=== PATIENT | male | born 1935 | race Caucasian/White ===

== ENCOUNTER 2017-07-09 12:57 | Observation (INO) | payer OTHER, BC ==
[~2017-07-09] VITALS: Ht 177.8 cm; Wt 131.5 kg
[~2017-07-09 12:57] MED LIST: ASPI-435 PO; CMD25 PO; DICL-201 PO; DUTA0.5C PO; GLC500 PO; GLIP-199 PO; HYDR-3419 PO; LANS30TA3 PO; LISI-461 PO; LPR25 PO; SAXA1TAB PO
[2017-07-09 14:28] LABS: BASO % 0.5 %; BASO ABS # 0.05 K/uL (0-0.2); COMPLETE YES; EOS % 6.8 %; IG% 0.3 %; LYMPH % 24.1 %; LYMPH ABS # 2.29 K/uL (1.2-3.4); MEAN CELL VOLUME 89.7 fL (80-100); MEAN CORPUSCULAR HEMOGLOBIN 30.8 pg (25-34); MEAN CORPUSCULAR HGB CONC 34.4 g/dl (32-36); MONO % 7.6 %; NEUT % 60.7 %; PLATELET COUNT 223 K/uL (130-400); RED BLOOD COUNT 4.35 M/uL (4.7-6.1)
[2017-07-09 14:37] LABS: ALT/SGPT 17 U/L (12-78); AST/SGOT 14 U/L (15-37); BLOOD UREA NITROGEN 13 mg/dl (7-18); CALCIUM 8.7 mg/dl (8.5-10.1); CARBON DIOXIDE 23 mmol/L (21-32); CHLORIDE 107 mmol/L (98-107); CREATININE 0.91 mg/dl (0.60-1.40); GLUCOSE 63 mg/dl (70-99); POTASSIUM 3.9 mmol/L (3.5-5.1); SODIUM 137 mmol/L (136-145)
[2017-07-09 14:47] LABS: ALKALINE PHOSPHATASE 83 U/L (45-117)
--- NOTE | 2017-07-09 15:01 | DIAGNOSTIC IMAGING REPORT ---
ABDOMEN 2VIEW W/PA CHEST RTN HISTORY: 81 years-old Male ABDOMINAL PAIN/GI acute upper abdominal pain for a few days. Initial study. COMPARISON: Chest radiograph 03/21/2014 TECHNIQUE: Frontal view of the chest with erect and supine views of the abdomen FINDINGS: Cardiac silhouette is moderately enlarged, unchanged. Left pectoral pacer is noted with leads intact. No pneumothorax, pleural effusion or focal airspace consolidation. No overt pulmonary edema. There is no pneumoperitoneum on the upright projection. The bowel gas pattern is nonobstructive. No urolith identified. Moderate stool burden. Advanced multilevel degenerative changes of the spine are seen. Moderate degenerative changes of the bilateral hips. IMPRESSION: 1. Cardiomegaly without acute cardiopulmonary process. 2. Moderate stool burden with nonobstructive bowel gas pattern. 3. No urolithiasis identified. The above report was generated using voice recognition software. It may contain grammatical, syntax or spelling errors. Electronically signed by: Coleman Parsons M.D. 07/09/2017 2:59 PM Dictated Date/Time: 07/09/2017 2:57 PM
[2017-07-09 15:25] LABS: INR 1.9 (0.9-1.1); PARTIAL THROMBOPLASTIN RATIO 1.3; PROTHROMBIN TIME (PATIENT) 21.4 SECONDS (9.0-12.0)
[2017-07-09 15:34] LABS: MAGNESIUM 1.9 mg/dl (1.8-2.4); PHOSPHORUS 2.3 mg/dl (2.5-4.9)
[2017-07-09] MEDS ORDERED: METF1000 PO (15:39)
[2017-07-09] MEDS ORDERED: TAMS0.4C38 PO (15:39)
[2017-07-09] MEDS ORDERED: ROSU5TAB PO (15:39)
[2017-07-09] MEDS ORDERED: METO25TA56 PO (15:39)
[2017-07-09] MEDS ORDERED: SPIR25TA89 PO (15:39)
[2017-07-09] MEDS ORDERED: FURO-85 PO (15:39)
[2017-07-09] MEDS ORDERED: WARF5TAB7 PO (15:39)
[2017-07-09] MEDS ORDERED: CMD/25 PO (15:39)
--- NOTE | 2017-07-09 15:54 | EMERGENCY ROOM VISIT NOTE ---
ED Visit Note First contact with patient: 13:32 The patient was seen and examined with Martinez Rod PA-C. I agree with the history, physical and findings. Please see the note for disposition and details.
[2017-07-09 16:27] LABS: URINE APPEARANCE CLEAR (CLEAR); URINE BILIRUBIN NEG (NEG); URINE COLOR YELLOW; URINE NITRITE NEG (NEG); URINE SPECIFIC GRAVITY 1.021 (1.000-1.030); UROBILINOGEN NEG (NEG)
[2017-07-09 16:28] LABS: MANUAL MICROSCOPIC REQUIRED? NO; REVIEW REQ? NO
[2017-07-09] MEDS ORDERED: DEXTROSE 50% 50 ML SYR IV PRN (17:00)
[2017-07-09] MEDS ORDERED: GLUCAGON FOR INJ 1 MG VIAL SQ PRN (17:00)
[2017-07-09] MEDS ORDERED: GLUCOSE 10 TABS/TUBE PO PRN (17:00)
[2017-07-09] MEDS ORDERED: GLUCOSE 40% GEL 15 GM TUBE PO PRN (17:00)
--- NOTE | 2017-07-09 17:06 | DIAGNOSTIC IMAGING REPORT ---
ABDOMINAL ULTRASOUND, RIGHT UPPER QUADRANT HISTORY: Epigastric pain. COMPARISON: None. FINDINGS: Pancreas: Obscured by overlying bowel gas. Liver: The liver is echogenic consistent with fatty change. The liver measures 18.7 cm in length. Gallbladder: Echogenic material which almost completely fills the gallbladder. This likely represents shadowing stones. No gallbladder wall thickening. No pericholecystic fluid. The technologist reported a negative sonographic Christian's sign. CBD: 4 mm. Right kidney: No hydronephrosis. IMPRESSION: 1. Cholelithiasis which almost completely fills the gallbladder. No definite gallbladder wall thickening. 2. Borderline hepatomegaly demonstrating fatty change. 3. The pancreas was obscured by overlying bowel gas. Electronically signed by: Say Watt M.D. 07/09/2017 5:04 PM Dictated Date/Time: 07/09/2017 5:02 PM
[2017-07-09] MEDS ORDERED: IV FLUIDS COMPLETED PRN (17:15)
[2017-07-09] MEDS ORDERED: CMD75 PO (17:28)
[2017-07-09] MEDS ORDERED: WARFARIN SOD 7.5 MG TAB PO SCH (17:30)
[2017-07-09] MEDS ORDERED: WARFARIN SOD 5 MG TAB PO SCH (17:30)
[2017-07-09] MEDS ORDERED: NITROGLYCERIN 0.4 MG SL PER TAB CHARGE SL PRN (17:45)
[2017-07-09] MEDS ORDERED: ENOXAPARIN 40 MG/0.4 ML SYR SC SCH (17:45)
[2017-07-09] MEDS ORDERED: ACETAMINOPHEN 325 MG TAB PO PRN (17:45)
[2017-07-09] MEDS ORDERED: ONDANSETRON INJ 2 MG/ML 2 ML VIAL IV PRN (17:45)
--- NOTE | 2017-07-09 17:57 | History and Physical ---
History & Physical Date & Time of Service: Jul 09, 2017 at 17:54 Chief Complaint: Chest And Upper Stomach Pain Primary Care Physician: Jordon Cortez M.D. 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 Patient is unsure about the onset of pain. Describes pain beneath lower sternum and in mid- epigastrium that is sharp, intermittent, non-radiating, and worse with exertion. Patient is a poor historian but family and daughter mentioned that patient was doubled over in pain this morning. Endorses SOB, but states that he has had this for years and is SOB after walking 20 feet. Per family, patient is becoming SOB after climbing a few steps in his home, which is different than baseline. Endorses orthopnea but states that it has improved since starting to use a CPAP machine at night earlier this month. Denies any change to edema in LE. Denies ever being diagnosed with CHF. Daughter states that patient's abdomen looks larger than usual but patient denies weight gain. Has a large abdominal wall hernia that has been present for years. Patient is unsure if it contributes to SOB. Denies any fever, chills, nausea, acid-reflux, vomiting, diarrhea or changes to stool. Patient follows with Dr. Leyva in clinic for A fib and HTN. Was recently seen and patient was restarted on Lasix 3x/wk after running out. PM was interrogated on 01/15 and is functioning normally. Stress echo was performed in 2014 and was negative for inducible ischemia. LV EF of 55-59%. Family History FH: cancer FH: diabetes mellitus Social History Smoking Status: Never Smoker Marital Status: Housing status: lives with family Allergies Coded Allergies: No Known Allergies (Unverified , 07/09/17) Home Medications Scheduled Aspirin (Aspirin 81), 81 MG PO DAILY Dutasteride (Avodart), 0.5 MG PO DAILY Furosemide (Lasix), 20 MG PO 3XWK Glipizide (Glipizide Er), 2 TAB PO DAILY Lansoprazole (Prevacid Solutab), 30 MG PO DAILY Metformin Hcl (Glucophage), 1,000 MG PO DAILY Metoprolol Tartrate (Lopressor) (Lopressor), 25 MG PO BID Rosuvastatin Calcium (Crestor), 10 MG PO MON&THUR Saxagliptin-Metformin Hcl (Kombiglyze Xr), 1 TAB PO DAILY Spironolactone (Aldactone), 25 MG PO UD Tamsulosin Hcl (Flomax), 0.4 MG PO DAILY Warfarin Sod (Jantoven), 5 MG PO MON&FRI Warfarin Sod (Coumadin), 1 TAB PO DIRECTED Review of Systems Ten systems reviewed and negative except as noted in the HPI. Physical Exam Vital Signs Date Time Temp Pulse Resp B/P (MAP) Pulse Ox O2 Delivery O2 Flow Rate FiO2 07/09/17 17:51 36.5 60 16 141/75 97 07/09/17 16:07 60 16 07/09/17 16:02 148/88 07/09/17 15:37 60 18 94 07/09/17 15:32 136/66 07/09/17 15:07 60 19 95 07/09/17 15:02 134/68 07/09/17 14:57 60 19 97 07/09/17 14:54 143/70 07/09/17 14:27 60 16 94 07/09/17 14:02 134/71 07/09/17 13:57 60 14 94 07/09/17 13:38 96 Room Air 07/09/17 13:32 139/85 07/09/17 13:30 60 07/09/17 13:07 36.5 82 20 146/85 96 Room Air General Appearance: WD/WN, no apparent distress, + obese Head: normocephalic, atraumatic Eyes: normal inspection, PERRL, sclerae normal ENT: normal ENT inspection Neck: supple, no adenopathy Respiratory/Chest: chest non-tender, lungs clear, normal breath sounds, no respiratory distress, no accessory muscle use Cardiovascular: regular rate, rhythm, no murmur, normal peripheral pulses Abdomen/GI: normal bowel sounds, non tender, soft (Protuberant abdomen with large abdominal wall hernia in the midline. Slight TTP in mid-epigastrium. No tenderness elsewhere. ), no organomegaly Back: normal inspection Extremities/Musculoskelatal: normal inspection, no calf tenderness, normal capillary refill, + swelling (Trace swelling in LE ) Neurologic/Psych: no motor/sensory deficits, alert, normal mood/affect, oriented x 3 Skin: normal color, warm/dry Diagnostics Laboratory Results Results Past 24 Hours Test 07/09/17 13:25 07/09/17 13:41 07/09/17 14:55 07/09/17 16:00 Range/Units White Blood Count 9.50 4.8-10.8 K/uL Red Blood Count 4.35 4.7-6.1 M/uL Hemoglobin 13.4 14.0-18.0 g/dL Hematocrit 39.0 42-52 % Mean Corpuscular Volume 89.7 80-100 fL Mean Corpuscular Hemoglobin 30.8 25-34 pg Mean Corpuscular Hemoglobin Concent 34.4 32-36 g/dl Platelet Count 223 130-400 K/uL Mean Platelet Volume 10.0 7.4-10.4 fL Neutrophils (%) (Auto) 60.7 % Lymphocytes (%) (Auto) 24.1 % Monocytes (%) (Auto) 7.6 % Eosinophils (%) (Auto) 6.8 % Basophils (%) (Auto) 0.5 % Neutrophils # (Auto) 5.76 1.4-6.5 K/uL Lymphocytes # (Auto) 2.29 1.2-3.4 K/uL Monocytes # (Auto) 0.72 0.11-0.59 K/uL Eosinophils # (Auto) 0.65 0-0.5 K/uL Basophils # (Auto) 0.05 0-0.2 K/uL RDW Standard Deviation 46.4 36.4-46.3 fL RDW Coefficient of Variation 14.1 11.5-14.5 % Immature Granulocyte % (Auto) 0.3 % Immature Granulocyte # (Auto) 0.03 0.00-0.02 K/uL Sodium Level 137 136-145 mmol/L Potassium Level 3.9 3.5-5.1 mmol/L Chloride Level 107 98-107 mmol/L Carbon Dioxide Level 23 21-32 mmol/L Anion Gap 7.0 3-11 mmol/L Blood Urea Nitrogen 13 7-18 mg/dl Creatinine 0.91 0.60-1.40 mg/dl Est Creatinine Clear Calc Drug Dose 89.0 ml/min Estimated GFR () 92.6 Estimated GFR (Non- 79.9 BUN/Creatinine Ratio 14.0 10-20 Random Glucose 63 70-99 mg/dl Calcium Level 8.7 8.5-10.1 mg/dl Phosphorus Level 2.3 2.5-4.9 mg/dl Magnesium Level 1.9 1.8-2.4 mg/dl Total Bilirubin 1.0 0.2-1 mg/dl Direct Bilirubin 0.2 0-0.2 mg/dl Aspartate Amino Transf (AST/SGOT) 14 15-37 U/L Alanine Aminotransferase (ALT/SGPT) 17 12-78 U/L Alkaline Phosphatase 83 45-117 U/L Total Creatine Kinase 81 39-308 U/L Troponin I < 0.015 0-0.045 ng/ml Pro-B-Type Natriuretic Peptide 2800 0-1800 pg/ml Total Protein 7.0 6.4-8.2 gm/dl Albumin 3.5 3.4-5.0 gm/dl Lipase 75 73-393 U/L Thyroid Stimulating Hormone (TSH) 2.690 0.300-4.500 uIu/ml Bedside Troponin I < 0.030 0-0.045 ng/ml Prothrombin Time 21.4 9.0-12.0 SECONDS Prothromb Time International Ratio 1.9 0.9-1.1 Activated Partial Thromboplast Time 32.9 21.0-31.0 SECONDS Partial Thromboplastin Ratio 1.3 D-Dimer 280 0-500 ug/L FEU Urine Color YELLOW Urine Appearance CLEAR CLEAR Urine pH 5.0 4.5-7.5 Urine Specific [place] 1.021 1.000-1.030 Urine Protein NEG NEG Urine Glucose (UA) NEG NEG Urine Ketones NEG NEG Urine Occult Blood NEG NEG Urine Nitrite NEG NEG Urine Bilirubin NEG NEG Urine Urobilinogen NEG NEG Urine Leukocyte Esterase NEG NEG Diagnostic Radiology CXR: IMPRESSION: 1. Cardiomegaly without acute cardiopulmonary process. 2. Moderate stool burden with nonobstructive bowel gas pattern. 3. No urolithiasis identified. RUQ ultrasound: 1. Cholelithiasis which almost completely fills the gallbladder. No definite gallbladder wall thickening. 2. Borderline hepatomegaly demonstrating fatty change. 3. The pancreas was obscured by overlying bowel gas. 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 Lower central chest pain/epigastric pain: -R/o ACS; risk factors include HTN, DM II, obesity, HLD -Initial troponin negative, EKG-no ischemia, d-dimer: negative -CXR- Cardiomegaly without acute cardiopulmonary process -Stress echo from 2015 without inducible ischemia. EF of 55-59% -Trend serial cardiac enzymes -Repeat EKG in AM -Fasting lipid panel in AM -Cont aspirin, statin -Consult cardiology DM II: -Unable to find recent hgb a1c in chart review -Ordered hgb a1c -Held oral agents -SSI while in-patient -BG checks AC HS -Diabetic diet Cholelithiasis: -Observed on RUQ U/S. No GB wall thickening -Afebrile, no leukocytosis or RUQ pain to indicate cholecystitis -Encourage low fat diet, continuation of statin -Monitor HTN: -Stable -Continue home dose of lasix, spironolactone, metoprolol A fib: -H/o tachy-leanne syndrome with PM placed in 2013 -Rate controlled -INR subtherapeutic at 1.9 -Increased warfarin to 7.5mg daily while in-patient -Monitor INR Elevated BNP: -BNP of 2800 with SOB -Not diagnosis of CHF on file, however is on diuretics -Lungs are clear, legs with minimal swelling -Repeat echo HLD: -Continue statin -Fasting lipid panel in AM HERMES: -Recently diagnosed -Ordered CPAP for qHS use GERD: -Continue home meds DVT Ppx: on warfarin Code status: FULL PCP: Diego Dispo: Plan to return home once medically stable ADDENDUM: This is a 81 year old male with a PMH of A. Fib and tachy-leanne syndrome s/p PPM , DM2, HTN, HLD, morbid obesity, HERMES on CPAP - presents with epigastric, lower chest pain for around two weeks. Pain seems more related to a hernia more than cardiac, but with so many risk factors, must rule out ACS. Plan is to monitor in tele, check echo, trend enzymes, recheck EKG in AM. Consult cardiology for further input. Currently on Prevacid once daily, may need to increase this or add Zantac Level of Care Telemetry Resuscitation Status FULL RESUSCITATION VTE Prophylaxis VTE Risk Assessment Done? Y/N: Yes Risk Level: High Given or contraindicated: Warfarin (Coumadin)
[2017-07-09 18:22] VITALS: BP 149/85; PULSE 68; TEMP 36.2; O2SAT 97; Ht 177.8 cm; Wt 131.5 kg
[2017-07-09] MEDS ORDERED: FUROSEMIDE 20 MG TAB PO SCH (19:00)
[2017-07-09] MEDS ORDERED: ENALAPRILAT IV 1.25 MG in DEXTROSE 5% 25ML 25 ML IV ONE (19:30)
[2017-07-09] MEDS: POT PHOSPHATE MONOBASIC W/ SOD TAB PO SCH (20:10)
[2017-07-09] MEDS: SPIRONOLACTONE 25 MG TAB PO SCH (20:10)
[2017-07-09] MEDS: METOPROLOL TARTRATE 25 MG TAB PO SCH (20:10)
[2017-07-09 20:18] LABS: CKMB/CK RATIO 1.8 (0-3.0)
[2017-07-09] MEDS: INSULIN ASPART 100 UNITS/ML 3 ML PEN SC SCH (20:19)
[2017-07-09] MEDS: AVODART~ORDER AWAITING ACTION SCH (23:04)
--- NOTE | 2017-07-09 23:18 | EMERGENCY ROOM VISIT NOTE ---
History First contact with patient: 13:32 Chief Complaint: CHEST PAIN Stated Complaint: CHEST AND UPPER STOMACH PAIN History of Present Illness The patient is a 81 year old male, history of atrial fibrillation with tachybradycardia syndrome status post [employer] pacemaker insertion in 2013, who presents to the Emergency Room with complaints of lower central chest pain, upper abdominal pain and fullness. The patient is a poor historian, and his and daughter are both present, helping with the patient's history. The patient reports that his symptoms have been ongoing for the past week. He reports that the pain is intermittent in nature. It does not radiate into the back, upper chest or lower abdomen. He has not noticed any change in stools or urine patterns. The patient reports that he has been short of breath over the past month, but reports that this is not new. He has not noticed any edema of the lower extremities. According to the daughter, she reports that his abdomen looks bigger than it usually is. He has a history of abdominal wall hernia that has not been addressed by his PCP or his surgeon, but has had it for years. The patient has not noticed any nausea or vomiting. The is also concerned because he sleeps all the time and appears to be more fatigued than usual. The patient denies any recent changes in his blood glucose levels with history of diabetes. He has not had any recent fevers or chills, cough, sore throat or sinus congestion. At the current time, he rates his abdominal pain a 2 out of 10. His family reported that he was doubled over in pain this morning. Review of Systems HEENT: Denies dizziness, atypical visual problems, hearing loss, tinnitus. Denies difficulty swallowing or oral lesions. PULMONARY: Denies cough, sputum production or hemoptysis. He currently denies any shortness of breath. CARDIOVASCULAR: Denies any recent palpitations, dyspnea on exertion, orthopnea or peripheral edema. GASTROINTESTINAL: Denies diarrhea, constipation, nausea or vomiting. Otherwise see history of present illness. GENITOURINARY: Denies dysuria, frequency, urgency or nocturia. NEUROLOGIC: Denies history of epilepsy, CVA, TIA or chronic headaches. MUSCULOSKELETAL: Denies history of joint tenderness/swelling. SKIN: Denies rashes or lesions. PSYCHIATRIC: Denies history of depression or mental illness. ENDOCRINE: History of diabetes. Denies thyroid disorders. Past Medical/Surgical History Medical Problems: (1) Atrial Fibrillation (2) Chest pain (3) Diab Aan Wo Compl, Type Ii Or Unspec Type, Not Uncntrld (4) Epigastric abdominal pain (5) Esophageal Reflux (6) History of cardiac pacemaker (7) Hyperlipidemia Nec/Nos (8) Hypertension Nos (9) Morbid Obesity Family History FH: cancer FH: diabetes mellitus Social History Smoking Status: Never Smoker Smokeless Tobacco Use: No Alcohol Use: none Drug Use: none Marital Status: Occupation Status: retired Current/Historical Medications Scheduled Aspirin (Aspirin 81), 81 MG PO DAILY Dutasteride (Avodart), 0.5 MG PO DAILY Furosemide (Lasix), 20 MG PO 3XWK Glipizide (Glipizide Er), 2 TAB PO DAILY Lansoprazole (Prevacid Solutab), 30 MG PO DAILY Metformin Hcl (Glucophage), 1,000 MG PO DAILY Metoprolol Tartrate (Lopressor) (Lopressor), 25 MG PO BID Rosuvastatin Calcium (Crestor), 10 MG PO MON&THUR Saxagliptin-Metformin Hcl (Kombiglyze Xr), 1 TAB PO DAILY Spironolactone (Aldactone), 25 MG PO UD Tamsulosin Hcl (Flomax), 0.4 MG PO DAILY Warfarin Sod (Jantoven), 5 MG PO MON&FRI Warfarin Sod (Coumadin), 1 TAB PO DIRECTED Physical Exam Vital Signs Date Time Temp Pulse Resp B/P (MAP) Pulse Ox O2 Delivery O2 Flow Rate FiO2 07/09/17 16:07 60 16 07/09/17 16:02 148/88 07/09/17 15:37 60 18 94 07/09/17 15:32 136/66 07/09/17 15:07 60 19 95 07/09/17 15:02 134/68 07/09/17 14:57 60 19 97 07/09/17 14:54 143/70 07/09/17 14:27 60 16 94 07/09/17 14:02 134/71 07/09/17 13:57 60 14 94 07/09/17 13:38 96 Room Air 07/09/17 13:32 139/85 07/09/17 13:30 60 07/09/17 13:07 36.5 82 20 146/85 96 Room Air Physical Exam CONSTITUTIONAL: Healthy and well nourished. Alert and oriented X 3 with positive affect. Patient does not appear in any acute distress. HEENT: Normocephalic, atraumatic. Pupils equal, round and reactive. Ears and nares are clear. No scleral icterus or conjunctival pallor. No rhinorrhea. OROPHARYNX: No posterior frontal erythema or tonsillar hypertrophy. No other buccal or mucosal lesions. NECK: Full active range of motion without discomfort. No JVD or carotid bruits. RESPIRATORY: Clear to auscultation bilaterally with no wheezing, crackles, rhonchi or stridor. CARDIOVASCULAR: Regular rate and rhythm with no murmurs, rubs or gallops. GASTROINTESTINAL: Bowel sounds present in all quadrants. Minimal epigastric tenderness to palpation. No abdominal rigidity, guarding or rebound. The abdomen is protuberant. I do not feel any palpable wall defects or other suspicious masses. Negative ballottement. Negative fluid wave. No CVA tenderness. Negative McBurney's point tenderness. No left lower quadrant tenderness to palpation. MUSCULOSKELETAL: Full range of motion of all joints without discomfort. INTEGUMENTARY: No rash or other significant dermatologic conditions noted. HEMATOLOGIC: No ecchymosis or petechiae. NEUROLOGIC: No focal neurologic deficits noted. Medical Decision & Procedures ER Provider Diagnostic Interpretation: My interpretation of an ECG shows a ventricular paced rhythm of 77 bpm. An abdomen obstruction series with a PA chest shows cardiomegaly without evidence for failure. There are no additional lung consolidations. The patient has a moderate stool load without obstructive pattern. Radiologist report is as follows: ABDOMEN 2VIEW W/PA CHEST RTN HISTORY: 81 years-old Male ABDOMINAL PAIN/GI acute upper abdominal pain for a few days. Initial study. COMPARISON: Chest radiograph 03/21/2014 TECHNIQUE: Frontal view of the chest with erect and supine views of the abdomen FINDINGS: Cardiac silhouette is moderately enlarged, unchanged. Left pectoral pacer is noted with leads intact. No pneumothorax, pleural effusion or focal airspace consolidation. No overt pulmonary edema. There is no pneumoperitoneum on the upright projection. The bowel gas pattern is nonobstructive. No urolith identified. Moderate stool burden. Advanced multilevel degenerative changes of the spine are seen. Moderate degenerative changes of the bilateral hips. IMPRESSION: 1. Cardiomegaly without acute cardiopulmonary process. 2. Moderate stool burden with nonobstructive bowel gas pattern. 3. No urolithiasis identified. Gallbladder ultrasound showed cholelithiasis without evidence for cholecystitis. Radiologist report is as follows: ABDOMINAL ULTRASOUND, RIGHT UPPER QUADRANT HISTORY: Epigastric pain. COMPARISON: None. FINDINGS: Pancreas: Obscured by overlying bowel gas. Liver: The liver is echogenic consistent with fatty change. The liver measures 18.7 cm in length. Gallbladder: Echogenic material which almost completely fills the gallbladder. This likely represents shadowing stones. No gallbladder wall thickening. No pericholecystic fluid. The technologist reported a negative sonographic Christian's sign. CBD: 4 mm. Right kidney: No hydronephrosis. IMPRESSION: 1. Cholelithiasis which almost completely fills the gallbladder. No definite gallbladder wall thickening. 2. Borderline hepatomegaly demonstrating fatty change. 3. The pancreas was obscured by overlying bowel gas. Laboratory Results 07/09/17 13:25 Red Blood Count 4.35, Mean Corpuscular Volume 89.7, Mean Corpuscular Hemoglobin 30.8, Mean Corpuscular Hemoglobin Concent 34.4, Mean Platelet Volume 10.0, Neutrophils (%) (Auto) 60.7, Lymphocytes (%) (Auto) 24.1, Monocytes (%) (Auto) 7.6, Eosinophils (%) (Auto) 6.8, Basophils (%) (Auto) 0.5, Neutrophils # (Auto) 5.76, Lymphocytes # (Auto) 2.29, Monocytes # (Auto) 0.72, Eosinophils # (Auto) 0.65, Basophils # (Auto) 0.05 07/09/17 13:25 Test 07/09/17 13:25 07/09/17 13:41 07/09/17 14:55 07/09/17 16:00 White Blood Count 9.50 K/uL (4.8-10.8) Red Blood Count 4.35 M/uL (4.7-6.1) Hemoglobin 13.4 g/dL (14.0-18.0) Hematocrit 39.0 % (42-52) Mean Corpuscular Volume 89.7 fL (80-100) Mean Corpuscular Hemoglobin 30.8 pg (25-34) Mean Corpuscular Hemoglobin Concent 34.4 g/dl (32-36) Platelet Count 223 K/uL (130-400) Mean Platelet Volume 10.0 fL (7.4-10.4) Neutrophils (%) (Auto) 60.7 % Lymphocytes (%) (Auto) 24.1 % Monocytes (%) (Auto) 7.6 % Eosinophils (%) (Auto) 6.8 % Basophils (%) (Auto) 0.5 % Neutrophils # (Auto) 5.76 K/uL (1.4-6.5) Lymphocytes # (Auto) 2.29 K/uL (1.2-3.4) Monocytes # (Auto) 0.72 K/uL (0.11-0.59) Eosinophils # (Auto) 0.65 K/uL (0-0.5) Basophils # (Auto) 0.05 K/uL (0-0.2) RDW Standard Deviation 46.4 fL (36.4-46.3) RDW Coefficient of Variation 14.1 % (11.5-14.5) Immature Granulocyte % (Auto) 0.3 % Immature Granulocyte # (Auto) 0.03 K/uL (0.00-0.02) Anion Gap 7.0 mmol/L (3-11) Est Creatinine Clear Calc Drug Dose 89.0 ml/min Estimated GFR () 92.6 Estimated GFR (Non- 79.9 BUN/Creatinine Ratio 14.0 (10-20) Calcium Level 8.7 mg/dl (8.5-10.1) Phosphorus Level 2.3 mg/dl (2.5-4.9) Magnesium Level 1.9 mg/dl (1.8-2.4) Total Bilirubin 1.0 mg/dl (0.2-1) Direct Bilirubin 0.2 mg/dl (0-0.2) Aspartate Amino Transf (AST/SGOT) 14 U/L (15-37) Alanine Aminotransferase (ALT/SGPT) 17 U/L (12-78) Alkaline Phosphatase 83 U/L (45-117) Pro-B-Type Natriuretic Peptide 2800 pg/ml (0-1800) Total Protein 7.0 gm/dl (6.4-8.2) Albumin 3.5 gm/dl (3.4-5.0) Lipase 75 U/L (73-393) Thyroid Stimulating Hormone (TSH) 2.690 uIu/ml (0.300-4.500) Bedside Troponin I < 0.030 ng/ml (0-0.045) Prothrombin Time 21.4 SECONDS (9.0-12.0) Prothromb Time International Ratio 1.9 (0.9-1.1) Activated Partial Thromboplast Time 32.9 SECONDS (21.0-31.0) Partial Thromboplastin Ratio 1.3 D-Dimer 280 ug/L FEU (0-500) Urine Color YELLOW Urine Appearance CLEAR (CLEAR) Urine pH 5.0 (4.5-7.5) Urine Specific [place] 1.021 (1.000-1.030) Urine Protein NEG (NEG) Urine Glucose (UA) NEG (NEG) Urine Ketones NEG (NEG) Urine Occult Blood NEG (NEG) Urine Nitrite NEG (NEG) Urine Bilirubin NEG (NEG) Urine Urobilinogen NEG (NEG) Urine Leukocyte Esterase NEG (NEG) The above labs were reviewed. BNP is elevated. D-dimer and troponin are normal. CBC is grossly normal with 3% bands and no left shift. INR is 1.9. Chemistries, LFTs and lipase are normal. TSH is normal. Urinalysis is also normal. ED Course Patient history and physical exam were performed. Nurse's notes were reviewed. Vital signs were reviewed, showing borderline hypertension at 146/85. The patient is afebrile and not tachycardic. O2 saturation is 96% on room air, and the patient is not tachypneic. The patient does not appear in any acute distress on my exam. I also reviewed a portion of prior medical records with the only documentation/visit in the past was for his pacemaker placement in 2013. IV access was established, and labs were drawn. The patient refused any analgesics or antiemetics. ECG shows a paced ventricular rhythm. A portable chest x-ray shows cardiomegaly without obvious failure pattern. Review of labs showed an elevated BNP, with remaining labs, including d-dimer and troponin being normal. The case was further discussed with Dr. Ashley, ED attending physician, who also examined the patient and recommended further inpatient evaluation, given his extensive cardiac history, recent shortness of breath, chest pain and elevated BNP values. The patient was in agreement. Consultation was placed with the [facility] hospitalist group. Please see their dictation for further treatment and final disposition. Medical Decision Patient presents to the emergency department with complaint of the inferior substernal chest pain and epigastric pain. Workup today is suggestive of a mild CHF. I do feel that further cardiac workup and echocardiogram is warranted. The patient does not have any clinical evidence for abdominal wall hernia at this time. Laboratory studies are not suggestive of pancreatitis, hepatitis or cholecystitis. A gallbladder ultrasound was ordered and showed complete filling of the gallbladder with gallstones. There was no obvious evidence for cholecystitis. This may certainly be causing some of his symptoms as well. Medication Reconcilliation Current Medication List: was personally reviewed by me Blood Pressure Screening Patient's blood pressure: Normal blood pressure Impression Primary Impression: Substernal precordial chest pain Additional Impressions: Epigastric abdominal pain Cholelithiasis Departure Information Referrals Jordon Cortez M.D. (PCP) Patient Instructions My [facility] Problem Qualifiers Additional Impressions: Cholelithiasis Cholelithiasis location: gallbladder Cholecystitis presence: without cholecystitis Biliary obstruction: without biliary obstruction Qualified Codes: K80.20 - Calculus of gallbladder without cholecystitis without obstruction
[2017-07-10] VITALS (11 sets, daily range): BP systolic 102–143; BP diastolic 52–79; PULSE 59–92; TEMP 36.4–36.8; O2SAT 96–97
[2017-07-10 03:43] LABS: CKMB/CK RATIO 1.6 (0-3.0)
[2017-07-10 06:45] LABS: PROTHROMBIN TIME (PATIENT) 21.6 SECONDS (9.0-12.0)
[2017-07-10 06:46] LABS: HEMATOCRIT 36.9 % (42-52); MEAN CORPUSCULAR HGB CONC 34.4 g/dl (32-36); MEAN PLATELET VOLUME 9.7 fL (7.4-10.4); PLATELET COUNT 193 K/uL (130-400); WHITE BLOOD COUNT 7.47 K/uL (4.8-10.8)
[2017-07-10 07:07] LABS: BUN/CREATININE RATIO 12.7 (10-20); CALCIUM 7.9 mg/dl (8.5-10.1); CREATININE 1.1 mg/dl (0.60-1.40); POTASSIUM 3.9 mmol/L (3.5-5.1)
[2017-07-10 07:10] LABS: CHOLESTEROL/HDL RATIO 2.4
[2017-07-10] MEDS: AVODART~ORDER AWAITING ACTION SCH ×3 (08:00→20:05)
[2017-07-10 08:08] LABS: ESTIMATED AVERAGE GLUCOSE 151 mg/dl; HA1C FLAG Normal (Normal)
[2017-07-10] MEDS: ASPIRIN 81 MG ECTAB PO SCH (08:48)
[2017-07-10] MEDS: LANSOPRAZOLE SOLUTAB 30 MG PO SCH (08:48)
[2017-07-10] MEDS: ROSUVASTATIN CALCIUM 10 MG TAB PO SCH (08:48)
[2017-07-10] MEDS: TAMSULOSIN HCL 0.4 MG CAP PO SCH (08:48)
[2017-07-10] MEDS: METOPROLOL TARTRATE 25 MG TAB PO SCH ×2 (08:49→21:01)
[2017-07-10] MEDS: POT PHOSPHATE MONOBASIC W/ SOD TAB PO SCH ×4 (08:49→21:01)
[2017-07-10] MEDS: INSULIN ASPART 100 UNITS/ML 3 ML PEN SC SCH ×4 (08:52→21:05)
[2017-07-10] MEDS ORDERED: PERFLUTREN LIPID MICROSPHERE (DEFINITY) IV ONE (09:23)
--- NOTE | 2017-07-10 10:45 | ECHOCARDIOGRAM REPORT ---
*NOTICE TO RECEIVING CONSTITUTION PARTY AGENCY This information is strictly Confidential and protected under [place] law. [place] law prohibits you from making any further disclosure of this information unless further disclosure is expressly permitted by the written consent of the person to whom it pertains or is authorized by law. A general authorization for the release of medical or other information is not sufficient for this purpose. Hospital accepts no responsibility if the information is made available to any other person, INCLUDING THE PATIENT. Interpretation Summary * Name: VANESSA SAMANIEGO Study Date: 07/10/2017 08:58 AM BP: 102/52 mmHg * Patient Location: .MED\S\N285\S\2 HR: 66 * : 1935 (M/d/yyyy) Gender: Male Height: 70 in * Age: 81 yrs Ethnicity: CA Weight: 285 lb * Ordering Physician: Marielle Au * Referring Physician: Self, Referred * Performed By: Thania Martin RCS * * Reason For Study: Chest pain * BSA: 2.4 m2 * -- Conclusions -- * The study is technically difficult and limited due to patient characteristics and poor acoustic windows despite the use of ultrasound contrast. * Abnormal septal wall motion is present consistent with right ventricular pacemaker abnormality. * There is invertentricular septal flattening noted on limited images, suggestive of RV pressure and volume overload. * The LV wall motion is otherwise grossly normal on limited visualization. * Left ventricular systolic function is low normal. * Ejection Fraction = 50-55%. * The right ventricle is grossly normal size. * The right ventricular systolic function is mildly reduced. * Tricuspid regurgitation was not detected by Doppler and therefore the right ventricular and pulmonary artery systolic pressures cannot be estmated. * Mild aortic regurgitation. * There is mild mitral regurgitation. Procedure Details * A contrast injection of Definity was performed to improve assessment of LV function. * Contrast was injected into an intravenous site in the left arm. * One vial of Definity ultrasound contrast was diluted in normal saline to a total volume of 10 ml. A total of '4' ml of solution was administered during imaging. * Lot # [id number] of Definity utilized for procedure. * Expiration date . * The attending nurse who injected the contrast agent was ED, RN. * A complete two-dimensional transthoracic echocardiogram was performed (2D, M-mode, Doppler and color flow Doppler). Left Ventricle * The left ventricle is normal in size. * There is normal left ventricular wall thickness. * Ejection Fraction = 50-55%. * Left ventricular systolic function is low normal. * Abnormal septal wall motion is present consistent with right ventricular pacemaker abnormality. There is invertentricular septal flattening noted on limited images, suggestive of RV pressure and volume overload. The LV wall motion is otherwise grossly normal on limited visualization. Right Ventricle * The right ventricle is grossly normal size. * The right ventricular systolic function is mildly reduced. Atria * The left atrium is mildly dilated. * Right atrial size is normal. * A pacemaker lead is noted in the right atrium. * There is no evidence of atrial septal defect, but resolution does not allow assessment for a patent foramen ovale. Mitral Valve * The mitral valve is normal. * There is no mitral valve stenosis. * There is mild mitral regurgitation. Tricuspid Valve * The tricuspid valve is normal. * There is no tricuspid stenosis. * Significant tricuspid regurgitation is absent. * Tricuspid regurgitation was not detected by Doppler and therefore the right ventricular and pulmonary artery systolic pressures cannot be estmated. Aortic Valve * The aortic valve is trileaflet. * Aortic stenosis is absent. * Mild aortic regurgitation. Pulmonic Valve * The pulmonary valve is not well seen, but the Doppler examination is normal without significant regurgitation or stenosis. Great Vessels * The aortic root and proximal ascending aorta are normal sized. Pericardium/Pleural * There is no pericardial effusion. Great Vessels * Normal inferior vena cava diameter and respiratory variation suggests normal central venous pressure. Left Ventricular Diastolic Function * The LV diastolic function is abnormal based on the left atrial enlargement. The LV diastolic function is not graded due to the presence of underlying atrial fibrillation and ventricualar pacing. MMode 2D Measurements and Calculations IVSd 1.0 cm LVIDd 5.8 cm LVIDs 2.7 cm LVPWd 0.96 cm IVS/LVPW 1.1 FS 52.7 % EDV(Teich) 165.7 ml ESV(Teich) 28.0 ml EF(Teich) 83.1 % EDV(cubed) 193.8 ml ESV(cubed) 20.5 ml EF(cubed) 89.4 % LV mass(C)d 233.5 grams LV mass(C)dI 96.2 grams/m\S\2 SV(Teich) 137.8 ml SI(Teich) 56.8 ml/m\S\2 SV(cubed) 173.3 ml SI(cubed) 71.4 ml/m\S\2 Ao root diam 3.0 cm Ao root area 7.2 cm\S\2 LVOT diam 2.0 cm LVOT area 3.1 cm\S\2 LVAd ap4 33.7 cm\S\2 LVLd ap4 8.2 cm EDV(MOD-sp4) 116.8 ml EDV(sp4-el) 118.3 ml LVAs ap4 18.2 cm\S\2 LVLs ap4 7.0 cm ESV(MOD-sp4) 39.2 ml ESV(sp4-el) 40.2 ml EF(MOD-sp4) 66.5 % EF(sp4-el) 66.0 % LVAd ap2 30.9 cm\S\2 LVLd ap2 7.6 cm EDV(MOD-sp2) 102.4 ml EDV(sp2-el) 106.3 ml LVAs ap2 16.3 cm\S\2 LVLs ap2 6.2 cm ESV(MOD-sp2) 34.5 ml ESV(sp2-el) 36.2 ml EF(MOD-sp2) 66.3 % EF(sp2-el) 65.9 % LVLd %diff -6.87 % EDV(MOD-bp) 110.1 ml LVLs %diff -12.21 % ESV(MOD-bp) 36.9 ml EF(MOD-bp) 66.5 % SV(MOD-sp4) 77.7 ml SI(MOD-sp4) 32.0 ml/m\S\2 SV(MOD-sp2) 67.8 ml SI(MOD-sp2) 27.9 ml/m\S\2 SV(MOD-bp) 73.2 ml SI(MOD-bp) 30.2 ml/m\S\2 SV(sp4-el) 78.1 ml SI(sp4-el) 32.2 ml/m\S\2 SV(sp2-el) 70.1 ml SI(sp2-el) 28.9 ml/m\S\2 Doppler Measurements and Calculations Ao V2 max 76.8 cm/sec Ao max PG 2.4 mmHg Ao max PG (full) -0.47 mmHg CARMELO(V,A) 3.4 cm\S\2 CARMELO(V,D) 3.4 cm\S\2 LV V1 max PG 2.8 mmHg LV V1 max 84.1 cm/sec
[2017-07-10] MEDS ORDERED: FUROSEMIDE INJ 20 MG in SYRINGE 0 ML IV ONE (14:30)
--- NOTE | 2017-07-10 14:42 | Cardiology Consultation ---
Cardiology Consultation Date of Consultation: Jul 10, 2017 History of Present Illness Gerald Long is a 81 year old male seen in cardiology consultation per the request of Marielle Au PA-C for the evaluation of chest discomfort. The patient typically follows with Dr. Edward Leyva of our practice with most recent outpatient visit on 06/15/17. At that time he had reportedly been doing relatively well but had reported a mechanical fall that placed prior to the visit with resultant injury to both sides of his chest. No chest discomfort was reported during that visit. The patient reportedly run out of his furosemide just before his cardiology visit and was taking hydrochlorothiazide instead. His medications were changed back at the time of the visit with discontinuation of hydrochlorothiazide and he was instructed to take furosemide 20 mg by mouth 3 days per week. The patient presented overnight last night with what he describes as a week long of waxing and waning epigastric discomfort. At that time he is doubled over in pain. He was groggy when I spoke to him first thing this morning having just woken up, and it was difficult to obtain a more adequate history. He notes some degree of abdominal fullness. Past Medical/Surgical History Problem List: History Past Medical History: 1. 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 Morbid obesity with obesity hypoventilation syndrome and nocturnal hypoxia 3. Type 2 diabetes mellitus 4. Long-standing hypertension 5. Dyslipidemia Past Surgical History: Pacemaker insertion 2013 Social History: Nonsmoker. Occasional rare alcohol use. Family History: No contributing family history. Review Of Systems See above for pertinent positives & negatives. A total of 10 systems reviewed and were otherwise negative. Allergies Coded Allergies: No Known Allergies (Unverified , 07/09/17) Medications Reported Home Medications Medications Dose Route/Sig Max Daily Dose Days Date Category Dose Instructions Coumadin (Warfarin Sod) 7.5 Mg Tab 1 Tab PO DIRECTED 07/09/17 Reported Lasix (Furosemide) 20 Mg Tab 20 Mg PO 3XWK 07/09/17 Reported Aldactone (Spironolactone) 25 Mg Tab 25 Mg PO UD 07/09/17 Reported TAKE ONE TABLET BY MOUTH TWO TO THREE DAYS A WEEK WITH LASIX Flomax (Tamsulosin Hcl) 0.4 Mg Cap 0.4 Mg PO DAILY 07/09/17 Reported Crestor (Rosuvastatin Calcium) 5 Mg Tab 10 Mg PO MON&THUR 07/09/17 Reported Jantoven (Warfarin Sodium) 5 Mg Tab 5 Mg PO MON&FRI 07/09/17 Reported Lopressor (Metoprolol Tartrate) 25 Mg Tab 25 Mg PO BID 07/09/17 Reported Glucophage (Metformin Hcl) 1,000 Mg Tab 1,000 Mg PO DAILY 07/09/17 Reported Aspirin 81 (Aspirin) 81 Mg Tab 81 Mg PO DAILY 03/20/14 Reported Kombiglyze Xr (Saxagliptin-Metformin Hcl) 1 Tab Tab 1 Tab PO DAILY 03/20/14 Reported Prevacid Solutab (Lansoprazole) 30 Mg Leidy 30 Mg PO DAILY 03/20/14 Reported Avodart (Dutasteride) 0.5 Mg Cap 0.5 Mg PO DAILY 03/20/14 Reported Glipizide Er (Glipizide) 10 Mg Tab 2 Tab PO DAILY 03/20/14 Reported 1/2 tablet every other day, alternating 1 tablet every other day Physical Exam Vital Signs (Last 8hrs): Last 8 Hrs Date Time Temp Pulse Resp B/P (MAP) Pulse Ox O2 Delivery O2 Flow Rate FiO2 07/10/17 12:00 Room Air 07/10/17 11:41 36.7 60 18 120/76 (91) 97 Room Air 07/10/17 08:47 61 143/75 (97) 07/10/17 08:00 Room Air 07/10/17 07:36 36.4 59 18 116/73 (87) 97 Room Air General Appearance: Alert and Oriented x3. NAD. Head: Normocephalic Atraumatic. Eyes: PERRLA, EOMI, conjunctiva and sclera clear Neck: Supple. No carotid bruits noted. No JVD. No HJD. Respiratory: Breath sounds clear to auscultation bilaterally. No w/r/r. Cardiovascular: Reg rate and rhythm. S1 and S2 noted. No murmurs, rubs, gallops. PMI non displace. Abdomen: Normal bowel sounds, soft nontender. no abdominal bruits. Extremities: No edema, no clubbing or cyanosis. distal pulses 2/4 bilaterally. Neuro: No focal deficits. Psychiatric: Normal affect. Data Last Resulted 07/10/17 06:05 Last Resulted 07/10/17 06:05 Past 24 Hours Test 07/09/17 14:55 07/09/17 19:41 07/10/17 01:10 07/10/17 06:05 Range/Units Prothromb Time International Ratio 1.9 H 2.0 H 0.9-1.1 Prothrombin Time 21.4 H 21.6 H 9.0-12.0 SECONDS Creatine Kinase MB 1.2 1.1 0.5-3.6 ng/ml Creatine Kinase MB Ratio 1.8 1.6 0-3.0 Total Creatine Kinase 68 67 39-308 U/L Troponin I < 0.015 < 0.015 0-0.045 ng/ml BNP level: 2,800 pg/ml. Chest x-ray cardiac silhouette enlargement, no definite CHF, moderate stool burden with nonobstructive bowel gas pattern. Ultrasound of the abdomen:-Summary radiology report Cholelithiasis which was completely fills the gallbladder, no cough bladder wall thickening, hepatomegaly demonstrating fatty changes per radiology report. EKG performed on arrival to the emergency room and again this morning reveals ventricular paced rhythm, it is inconclusive for ischemia due to the atrial paced QRS complexes. Telemetry reviewed: Telemetry reveals ventricular paced rhythm Transthoracic echocardiogram performed today and reviewed an appointment with the undersigned: Study was technically difficult and limited due to patient characteristics of poor acoustic windows despite the use of ultrasound contrast. * Abnormal septal wall motion is present consistent with right ventricular pacemaker abnormality. * There is invertentricular septal flattening noted on limited images, suggestive of RV pressure and volume overload. * The LV wall motion is otherwise grossly normal on limited visualization. * Left ventricular systolic function is low normal. * Ejection Fraction = 50-55%. * The right ventricle is grossly normal size. * The right ventricular systolic function is mildly reduced. * Tricuspid regurgitation was not detected by Doppler and therefore the right ventricular and pulmonary artery systolic pressures cannot be estmated. * Mild aortic regurgitation. * There is mild mitral regurgitation. Assessment & Plan Impression: 81-year-old male 1. Presented with epigastric discomfort. His EKG is nondiagnostic due to his ventricular paced rhythm, and serial cardiac enzymes have been negative. 2. Echocardiogram suggests septal motion consistent with right ventricular pacing, and findings of right ventricular chamber enlargement and septal flattening consistent with the patient's history of obesity hypoventilation syndrome. Discussion/recommendations: The patient's most recent stress test in place in 2014 with negative to be made stress echocardiogram at that time. Symptoms at this point felt to be somewhat atypical for angina, I think it is reasonable to pursue GI etiology as we follow him. Left ventricular diastolic heart failure, and right ventricular failure may also be contributing, with perhaps abdominal fluid retention. His brain atretic peptide screen is elevated, we'll proceed with cautious diuresis. Cased discussed with Dr Varela, agree with HIDA scan.
--- NOTE | 2017-07-10 16:35 | DIAGNOSTIC IMAGING REPORT ---
HEPATOBILIARY HIDA IMAGING HISTORY: Pain. Nausea. epiaortic pain. Gall stones COMPARISON: None. TECHNIQUE: Immediately following the intravenous administration of 5.2 mCi Tc-99m Choletec, dynamic anterior abdominal imaging was performed. FINDINGS: Uniform hepatic tracer accumulation is shown. Prompt intrahepatic biliary excretion is seen. The gallbladder, common bile duct, and small bowel are all visualized by 20 minutes. This appearance represents the normal sequence of biliary excretion. IMPRESSION: No evidence for cystic duct obstruction. Normal study The above report was generated using voice recognition software. It may contain grammatical, syntax or spelling errors. Electronically signed by: Gabriel Arriola M.D. 07/10/2017 4:34 PM Dictated Date/Time: 07/10/2017 4:33 PM
[2017-07-10] MEDS: WARFARIN SOD 7.5 MG TAB PO SCH (16:49)
--- NOTE | 2017-07-10 18:58 | Progress Note ---
Internal Med Progress Note Date of Service: Jul 10, 2017. Provider Documentation: SUBJECTIVE: resting comfortably afebrile says no sob while resting as some lower chest pain earlier but ok now had some epigastric pain but resolved now pain not related to food intake OBJECTIVE: Vital Signs-as noted below Exam: General-alert and oriented. Not in distress ENT-normal hearing Neck-no neck masses Lungs-cta b/l no wheezing no crackles Heart-s1 and s2 heard regular rhythm, no murmurs Abdomen-soft bowel sounds present non tender no distension Extremities no edema present no erythema Neuro-alert and oriented moves extremities Lab data as noted below. 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 Lower central chest pain/epigastric pain: R/o ACS; risk factors include HTN, DM II, obesity, HLD serial CE and ekg unremarkable Stress echo from 2014 without inducible ischemia. EF of 55-59% echo done- no wall motion abnormality on aspirin, statin Consulted cardiology and appreciate inputs Epigastric pain gall stones on ultrasounds hida scan unremarkable on Prevacid consulted GI for further recommendations. DM II: oral agents on hold SSI while in-patient will monitor HTN: Stable on lasix, spironolactone, metoprolol A fib: H/o tachy-leanne syndrome with PM placed in 2013 -Rate controlled inr 2.0 today Acute Mild right sided heart failure preserved ef BNP of 2800 with SOB on iv lasix cardiology on board will monitor HLD: on statin ldl44 hdl 44 HERMES: Recently diagnosed Ordered CPAP for qHS use GERD: home meds DVT Ppx: on warfarin Code status: FULL Dispo: Plan to return home once medically stable Vital Signs: Date Time Temp Pulse Resp B/P (MAP) Pulse Ox O2 Delivery O2 Flow Rate FiO2 07/10/17 16:00 Room Air 07/10/17 15:10 67 141/79 (99) 07/10/17 12:00 Room Air 07/10/17 11:41 36.7 60 18 120/76 (91) 97 Room Air 07/10/17 08:47 61 143/75 (97) 07/10/17 08:00 Room Air 07/10/17 07:36 36.4 59 18 116/73 (87) 97 Room Air 07/10/17 04:34 36.6 62 18 102/52 (69) 97 Room Air 07/10/17 04:00 97 Room Air 07/10/17 00:00 36.5 60 18 109/70 (83) 96 Room Air 07/10/17 00:00 97 Room Air 07/09/17 19:56 Room Air Lab Results: Results Past 24 Hours Test 07/09/17 19:41 07/09/17 20:15 07/10/17 01:10 07/10/17 06:05 Range/Units Total Creatine Kinase 68 67 39-308 U/L Creatine Kinase MB 1.2 1.1 0.5-3.6 ng/ml Creatine Kinase MB Ratio 1.8 1.6 0-3.0 Troponin I < 0.015 < 0.015 0-0.045 ng/ml Bedside Glucose 150 70-99 mg/dl White Blood Count 7.47 4.8-10.8 K/uL Red Blood Count 4.10 4.7-6.1 M/uL Hemoglobin 12.7 14.0-18.0 g/dL Hematocrit 36.9 42-52 % Mean Corpuscular Volume 90.0 80-100 fL Mean Corpuscular Hemoglobin 31.0 25-34 pg Mean Corpuscular Hemoglobin Concent 34.4 32-36 g/dl RDW Standard Deviation 46.8 36.4-46.3 fL RDW Coefficient of Variation 14.1 11.5-14.5 % Platelet Count 193 130-400 K/uL Mean Platelet Volume 9.7 7.4-10.4 fL Prothrombin Time 21.6 9.0-12.0 SECONDS Prothromb Time International Ratio 2.0 0.9-1.1 Sodium Level 138 136-145 mmol/L Potassium Level 3.9 3.5-5.1 mmol/L Chloride Level 107 98-107 mmol/L Carbon Dioxide Level 25 21-32 mmol/L Anion Gap 6.0 3-11 mmol/L Blood Urea Nitrogen 14 7-18 mg/dl Creatinine 1.10 0.60-1.40 mg/dl Est Creatinine Clear Calc Drug Dose 74.9 ml/min Estimated GFR () 73.6 Estimated GFR (Non- 63.5 BUN/Creatinine Ratio 12.7 10-20 Random Glucose 220 70-99 mg/dl Estimated Average Glucose 151 mg/dl Hemoglobin A1c 6.9 4.5-5.6 % Calcium Level 7.9 8.5-10.1 mg/dl Triglycerides Level 92 0-150 mg/dl Cholesterol Level 106 0-200 mg/dl HDL Cholesterol 44 mg/dl LDL Cholesterol, Calculated 44 mg/dl VLDL Cholesterol, Calculated 18 mg/dl Cholesterol/HDL Ratio 2.4 Test 07/10/17 07:30 07/10/17 11:32 07/10/17 16:55 Range/Units Bedside Glucose 148 126 129 70-99 mg/dl
[2017-07-11] VITALS (10 sets, daily range): BP systolic 112–145; BP diastolic 62–85; PULSE 59–70; TEMP 36.3–36.7; O2SAT 94–98
[2017-07-11] MEDS: AVODART~ORDER AWAITING ACTION SCH ×3 (08:00→19:27)
--- NOTE | 2017-07-11 08:17 | Gastrointestinal Consultation ---
Gastrointestinal Consultation Date of Consultation: Jul 11, 2017 Attending Physician: Dr. Varela Consulting Physician: Dr. Cook Reason for Consultation: epigastric pain; stones in the gallbladder History of Present Illness Patient is a 81 year old male with multiple medical problems including CAD and pacemaker on chronic anticoagulation. He was admitted with intermittent epigastric pain. He describes pain occurring at random times. No correlation with eating. Sometimes goeas around his flank to his back. No nausea or vomiting. His LFTs are normal. US showed many many stones in the gallbladder. HIDA was normal. He wants to go home. No history of PUD. On ASA and Coumadin. Denies any additional OTC NSAIDs. Past Medical/Surgical History Medical Problems: (1) Cholelithiasis Status: Acute (2) Substernal precordial chest pain Status: Acute Past Medical History: as noted in HPI Past Surgical History: as noted in HPI Family History FH: cancer FH: diabetes mellitus Social History Smoking Status: Never Smoker Alcohol Use: none Drug Use: none Marital Status: Occupation Status: retired Allergies Coded Allergies: No Known Allergies (Unverified , 07/09/17) Current Medications Home Meds and Scripts Medications Dose Route/Sig Max Daily Dose Days Date Category Dose Instructions Coumadin (Warfarin Sod) 7.5 Mg Tab 1 Tab PO DIRECTED 07/09/17 Reported Lasix (Furosemide) 20 Mg Tab 20 Mg PO 3XWK 07/09/17 Reported Aldactone (Spironolactone) 25 Mg Tab 25 Mg PO UD 07/09/17 Reported TAKE ONE TABLET BY MOUTH TWO TO THREE DAYS A WEEK WITH LASIX Flomax (Tamsulosin Hcl) 0.4 Mg Cap 0.4 Mg PO DAILY 07/09/17 Reported Crestor (Rosuvastatin Calcium) 5 Mg Tab 10 Mg PO MON&THUR 07/09/17 Reported Jantoven (Warfarin Sodium) 5 Mg Tab 5 Mg PO MON&FRI 07/09/17 Reported Lopressor (Metoprolol Tartrate) 25 Mg Tab 25 Mg PO BID 07/09/17 Reported Glucophage (Metformin Hcl) 1,000 Mg Tab 1,000 Mg PO DAILY 07/09/17 Reported Aspirin 81 (Aspirin) 81 Mg Tab 81 Mg PO DAILY 03/20/14 Reported Kombiglyze Xr (Saxagliptin-Metformin Hcl) 1 Tab Tab 1 Tab PO DAILY 03/20/14 Reported Prevacid Solutab (Lansoprazole) 30 Mg Leidy 30 Mg PO DAILY 03/20/14 Reported Avodart (Dutasteride) 0.5 Mg Cap 0.5 Mg PO DAILY 03/20/14 Reported Glipizide Er (Glipizide) 10 Mg Tab 2 Tab PO DAILY 03/20/14 Reported 1/2 tablet every other day, alternating 1 tablet every other day Review of Systems 12 systems reviewed and negative except as noted Physical Exam Date Time Temp Pulse Resp B/P (MAP) Pulse Ox O2 Delivery O2 Flow Rate FiO2 07/11/17 07:15 36.6 69 18 145/80 (101) 94 Room Air 07/11/17 05:02 36.7 70 20 129/85 (100) 97 Nasal Cannula 3.0 07/11/17 04:00 97 Room Air 07/11/17 00:00 97 Room Air 07/10/17 23:03 36.5 92 16 130/73 (92) 97 Room Air 07/10/17 20:22 97 Room Air 07/10/17 19:27 36.8 69 14 112/69 (83) 97 Room Air 07/10/17 19:25 36.8 69 14 112/69 (83) 97 Room Air 07/10/17 16:00 Room Air 07/10/17 15:10 67 141/79 (99) 07/10/17 12:00 Room Air 07/10/17 11:41 36.7 60 18 120/76 (91) 97 Room Air 07/10/17 08:47 61 143/75 (97) General Appearance: WD/WN, no apparent distress Eyes: normal inspection ENT: normal ENT inspection, hearing grossly normal, pharynx normal Neck: supple, no adenopathy, no JVD Respiratory/Chest: chest non-tender, lungs clear, normal breath sounds, no accessory muscle use Cardiovascular: regular rate, rhythm Abdomen: normal bowel sounds, non tender, soft, + pertinent finding (OBESE) Extremities: normal range of motion, no pedal edema Neurologic/Psych: sr. strategic sourcing manager II-XII nml as tested, no motor/sensory deficits, alert, normal mood/affect, oriented x 3 Skin: normal color, no jaundice, warm/dry, no rash Laboratory Results Last 24 Hours Test 07/10/17 11:32 07/10/17 16:55 07/10/17 20:07 07/11/17 07:17 Bedside Glucose 126 mg/dl 129 mg/dl 217 mg/dl 150 mg/dl Impression Patient is a 81 year old male with multiple meidcal problems admitted with intermittnet abd pain. He looks well and just ate a full breakfast. He should have an EGD as an outpatient. Agree with discharge to home. Plan as above
[2017-07-11] MEDS: ROSUVASTATIN CALCIUM 10 MG TAB PO SCH (08:27)
[2017-07-11] MEDS: ASPIRIN 81 MG ECTAB PO SCH (08:28)
[2017-07-11] MEDS: LANSOPRAZOLE SOLUTAB 30 MG PO SCH (08:28)
[2017-07-11] MEDS: TAMSULOSIN HCL 0.4 MG CAP PO SCH (08:28)
[2017-07-11] MEDS: METOPROLOL TARTRATE 25 MG TAB PO SCH ×2 (08:29→21:19)
[2017-07-11] MEDS: INSULIN ASPART 100 UNITS/ML 3 ML PEN SC SCH ×4 (08:32→20:49)
[2017-07-11] MEDS ORDERED: FUROSEMIDE INJ 20 MG in SYRINGE 0 ML IV SCH (09:00)
--- NOTE | 2017-07-11 15:51 | Progress Note ---
Internal Med Progress Note Date of Service: Jul 11, 2017. Provider Documentation: SUBJECTIVE: resting comfortably had some abdominal discomfort after taking orange juice doing ok now no fevers no sob OBJECTIVE: Vital Signs-as noted below Exam: General-alert and oriented. Not in distress ENT-normal hearing Neck-no neck masses Lungs-cta b/l no wheezing no crackles Heart-s1 and s2 heard regular rhythm, no murmurs Abdomen-soft bowel sounds present non tender no distension Extremities no edema present no erythema Neuro-alert and oriented moves extremities Lab data as noted below. 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 Lower central chest pain/epigastric pain: R/o ACS; risk factors include HTN, DM II, obesity, HLD serial CE and ekg unremarkable Stress echo from 2014 without inducible ischemia. EF of 55-59% echo done- no wall motion abnormality on aspirin, statin Consulted cardiology and appreciate inputs continue to monitor Epigastric pain gall stones on ultrasounds hida scan unremarkable on Prevacid consulted GI for further recommendations. GI recommends out patient egd added Zantac DM II: oral agents on hold SSI while in-patient will monitor HTN: Stable on lasix, spironolactone, metoprolol A fib: H/o tachy-leanne syndrome with PM placed in 2013 -Rate controlled inr 2.0 Acute Mild right sided heart failure preserved ef BNP of 2800 with SOB on iv lasix cardiology on board continue same will monitor HLD: on statin ldl44 hdl 44 HERMES: Recently diagnosed Ordered CPAP for qHS use GERD: home meds DVT Ppx: on warfarin Code status: FULL Dispo: await pt/ot eval possible d/c in am if stable Vital Signs: Date Time Temp Pulse Resp B/P (MAP) Pulse Ox O2 Delivery O2 Flow Rate FiO2 07/11/17 14:35 36.6 60 18 112/77 (89) 98 Room Air 07/11/17 12:00 Room Air 07/11/17 11:41 36.7 59 20 125/78 (94) 95 Room Air 07/11/17 08:25 61 126/73 (90) 07/11/17 08:00 Room Air 07/11/17 07:15 36.6 69 18 145/80 (101) 94 Room Air 07/11/17 05:02 36.7 70 20 129/85 (100) 97 Nasal Cannula 3.0 07/11/17 04:00 97 Room Air 07/11/17 00:00 97 Room Air 07/10/17 23:03 36.5 92 16 130/73 (92) 97 Room Air 07/10/17 20:22 97 Room Air 07/10/17 19:27 36.8 69 14 112/69 (83) 97 Room Air 07/10/17 19:25 36.8 69 14 112/69 (83) 97 Room Air 07/10/17 16:00 Room Air Lab Results: Results Past 24 Hours Test 07/10/17 16:55 07/10/17 20:07 07/11/17 07:17 07/11/17 11:35 Range/Units Bedside Glucose 129 217 150 292 70-99 mg/dl Test 07/11/17 15:33 Range/Units
[2017-07-11 16:32] LABS: INR 1.8 (0.9-1.1); PROTHROMBIN TIME (PATIENT) 19.2 SECONDS (9.0-12.0)
[2017-07-11] MEDS: WARFARIN SOD 7.5 MG TAB PO SCH (16:41)
--- NOTE | 2017-07-11 18:30 | Cardiology Follow-Up ---
Subjective General Date of Service: Jul 11, 2017. Chief Complaint: follow up epigastric discomfort, SOB Pt evaluation today including: conversation w/ patient, physical exam History of Present Illness The patient is a 81 year old male seen in follow up. Pt denies additional chest pain. Allergies Coded Allergies: No Known Allergies (Unverified , 07/09/17) Social History Smoking Status: Never Smoker Hx Tobacco Use In Past Year?: No Hx Alcohol Use - Type And Amou: No Hx Substance Use - Type And Am: No Problem List Medical Problems: (1) Cholelithiasis Status: Acute (2) Substernal precordial chest pain Status: Acute Physical Exam Vital Signs Last Vital Signs Documentation Date Time Temp Pulse Resp B/P (MAP) Pulse Ox O2 Delivery O2 Flow Rate FiO2 07/11/17 16:00 Room Air 07/11/17 14:35 36.6 60 18 112/77 (89) 98 07/11/17 05:02 3.0 Physical Exam Constitutional: Level of Distress: NAD Neck: supple Lungs: Auscultation: no wheezing, no rales/crackles, no rhonchi Cardiovascular: Heart Auscultation: RRR, no murmurs, no rubs Abdomen: Bowel Sounds: normal Inspection & Palpation: non-distended Extremities: no edema Neurologic: Gait & Station: pertinent finding (no focal deficits ) Assessment and Plan Assessment and Plan Impression: 81-year-old male 1. Presented with epigastric discomfort. His EKG is nondiagnostic due to his ventricular paced rhythm, and serial cardiac enzymes have been negative. 2. Echocardiogram suggests septal motion consistent with right ventricular pacing, and findings of right ventricular chamber enlargement and septal flattening consistent with the patient's history of obesity hypoventilation syndrome. Plan: Transition to oral furosemide tomorrow and update BMP in am. I do not think a stress test will be of help for decision making in this patient. His echo images are technically limited due to his body habitus, ventricular paced rhythm, and wall motion is difficult to assess given his chronic atrial fibrillation making to becoming stress echocardiogram of limited technical utility. He is unable to exercise showing a treadmill test. And I would presume that based on his body habitus, who be difficult to obtain nuclear perfusion imaging without significant artifact. His discomfort was atypical for angina, I think he likely had a component of acute on chronic left diastolic heart failure, and acute and chronic right heart failure which is improved. Plan to keep him in the hospital overnight, and ambulates well, would consider discharge in the morning. Agree with plan for EGD as outpatient or inpatient whatever works out but a scheduling. He is stable from a cardiac perspective to proceed with EGD. Laboratory Results Last 24 Hours Test 07/10/17 20:07 07/11/17 07:17 07/11/17 11:35 07/11/17 16:04 Bedside Glucose 217 mg/dl 150 mg/dl 292 mg/dl Prothrombin Time 19.2 SECONDS Prothromb Time International Ratio 1.8 Test 07/11/17 16:30 Bedside Glucose 144 mg/dl
[2017-07-11] MEDS: RANITIDINE HCL 150 MG TAB PO SCH (21:19)
[2017-07-12] VITALS (7 sets, daily range): BP systolic 109–130; BP diastolic 72–82; PULSE 59–62; TEMP 36.5–36.6; O2SAT 94–97
[2017-07-12] MEDS: INSULIN ASPART 100 UNITS/ML 3 ML PEN SC SCH ×2 (06:30→10:08)
[2017-07-12 07:30] LABS: BUN/CREATININE RATIO 15.3 (10-20); CREATININE 0.87 mg/dl (0.60-1.40); POTASSIUM 3.8 mmol/L (3.5-5.1)
[2017-07-12 07:31] LABS: CALCIUM 8.6 mg/dl (8.5-10.1)
[2017-07-12] MEDS: AVODART~ORDER AWAITING ACTION SCH (08:00)
[2017-07-12] MEDS: METOPROLOL TARTRATE 25 MG TAB PO SCH (08:35)
[2017-07-12] MEDS: ASPIRIN 81 MG ECTAB PO SCH (08:35)
[2017-07-12] MEDS: TAMSULOSIN HCL 0.4 MG CAP PO SCH (08:36)
[2017-07-12] MEDS: LANSOPRAZOLE SOLUTAB 30 MG PO SCH (08:36)
[2017-07-12] MEDS: SPIRONOLACTONE 25 MG TAB PO SCH (08:36)
[2017-07-12] MEDS: ROSUVASTATIN CALCIUM 10 MG TAB PO SCH (08:37)
[2017-07-12] MEDS: RANITIDINE HCL 150 MG TAB PO SCH (08:37)
[2017-07-12] MEDS ORDERED: FUROSEMIDE 20 MG TAB PO SCH (09:00)
--- NOTE | 2017-07-12 09:18 | Progress Note ---
Progress Note Date of Service Jul 12, 2017. Progress Note Will arrange outpatient EGD
[2017-07-12] MEDS ORDERED: ZNT150 PO (10:36)
[2017-07-12] MEDS ORDERED: LSX20 PO (10:36)
--- NOTE | 2017-07-12 10:40 | Discharge Instructions ---
Discharge Instructions Date of Service Jul 12, 2017. 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 Instructions / Follow-Up Instructions / Follow-Up FOLLOWUP WITH FAMILY DOCTOR IN ONE WEEK. FOLLOWUP WITH CARDIOLOGY IN 1-2 WEEKS. FOLLOWUP WITH COUMADIN CLINIC FOR COUMADIN DOSING. FOLLOWUP WITH GI SCHEDULED FOR EGD. LAB: BMP IN ONE WEEK PER FAMILY DOCTOR LASIX DOSE FREQUENCY INCREASED. Call your Primary Care doctor if any of the following symptoms or problems start or get worse: * Shortness of breath or difficulty breathing * Wake up at night short of breath * Chest pain * Cough * Swelling of your hands, feet, or legs * More fatigued or tired with your normal activity * Palpitations - sudden fast heart beats WEIGHT * Weigh yourself every morning after using the bathroom. * Use the same scale. * Wear the same amount of clothing. * Write your weight down on a chart. * Call your Primary Care doctor if you gain more than 2-3 pounds in 1-2 days. MEDICATIONS * Use this discharge instruction sheet for medication instructions. * Take your medications at the time your doctor ordered. * Do not skip a dose of your medicines. * If you miss a dose of medicine, take it as soon as possible, but DO NOT DOUBLE A DOSE. * Read your medicine information when you get home. * Know all of the side effects of your medicine. If in doubt, ask your pharmacist * Call your Primary Care doctor's office if you have any side effects. * Be sure all of your doctors know what medicine and herbs you take (including cold, flu, and herbal medicine). Take the following with you to your follow-up doctor appointments: * Weight Chart * Medication List * List of questions Do not drink excessive alcohol, beer or wine. Current Hospital Diet Patient's current hospital diet: Diabetes Type 2 Diet Discharge Diet Recommended Diet: AHA Diet (Heart Healthy), Diabetes Type 2 Diet Pending Studies Studies pending at discharge: no Laboratory Results Hemoglobin A1c Test 07/10/17 06:05 Range/Units Estimated Average Glucose 151 mg/dl Hemoglobin A1c 6.9 H 4.5-5.6 % Lipid Panel Test 07/10/17 06:05 Range/Units Triglycerides Level 92 0-150 mg/dl Cholesterol Level 106 0-200 mg/dl HDL Cholesterol 44 mg/dl Cholesterol/HDL Ratio 2.4 LDL Cholesterol, Calculated 44 mg/dl Medical Emergencies . Who to Call and When: Call 911 or go to the Emergency Room if: * If at any time you feel your situation is an emergency * You have tightness or pain in your chest that does not go away with rest or Nitroglycerin * You are very short of breath even with rest . Non-Emergent Contact Non-Emergency issues call your: Primary Care Provider . . "Provider Documentation" section prepared by Rc Varela. . VTE Core Measure Inpt VTE Proph given/why not?: Warfarin (Coumadin)
--- NOTE | 2017-07-12 10:40 | Cardiology Follow-Up ---
Subjective General Date of Service: Jul 12, 2017. Chief Complaint: follow up epigastric discomfort, SOB Pt evaluation today including: conversation w/ patient, physical exam History of Present Illness The patient is a 81 year old male seen in cardiology follow-up. Patient feels well today. He walked in the hallway with no anginal symptoms. He tolerated this morning meal. Allergies Coded Allergies: No Known Allergies (Unverified , 07/09/17) Social History Smoking Status: Never Smoker Hx Tobacco Use In Past Year?: No Hx Alcohol Use - Type And Amou: No Hx Substance Use - Type And Am: No Problem List Medical Problems: (1) Cholelithiasis Status: Acute (2) Substernal precordial chest pain Status: Acute Physical Exam Vital Signs Last Vital Signs Documentation Date Time Temp Pulse Resp B/P (MAP) Pulse Ox O2 Delivery O2 Flow Rate FiO2 07/12/17 08:30 62 111/72 (85) 07/12/17 08:00 Room Air 07/12/17 07:23 36.5 16 96 07/11/17 05:02 3.0 Physical Exam Constitutional: Level of Distress: NAD Neck: supple Lungs: Auscultation: no wheezing, no rales/crackles, no rhonchi Cardiovascular: Heart Auscultation: RRR, no murmurs, no rubs Abdomen: Bowel Sounds: normal Inspection & Palpation: non-distended Extremities: no edema Neurologic: Gait & Station: pertinent finding (no focal deficits ) Assessment and Plan Assessment and Plan Impression: 81-year-old male 1. Presented with epigastric discomfort. His EKG is nondiagnostic due to his ventricular paced rhythm, and serial cardiac enzymes have been negative. 2. Echocardiogram suggests septal motion consistent with right ventricular pacing, and findings of right ventricular chamber enlargement and septal flattening consistent with the patient's history of obesity hypoventilation syndrome. Plan: Repeat chemistry panel on dose furosemide reveals stable findings with stable kidney function and electrolytes. Patient feels well. Telemetry reveals ventricular paced rhythm without additional arrhythmia, based on his past device checks, chronic underlying atrial fibrillation has been present and I suspect this is his underlying rhythm. Patient stable for discharge, would increase his furosemide to 20 mg daily as compared to 3 days per week. He is stable from my perspective to undergo outpatient EEG without further cardiac testing. Laboratory Results Last 24 Hours Test 07/11/17 11:35 07/11/17 16:04 07/11/17 16:30 07/11/17 20:42 Bedside Glucose 292 mg/dl 144 mg/dl 138 mg/dl Prothrombin Time 19.2 SECONDS Prothromb Time International Ratio 1.8 Test 07/12/17 06:21 07/12/17 07:01 Sodium Level 138 mmol/L Potassium Level 3.8 mmol/L Chloride Level 104 mmol/L Carbon Dioxide Level 27 mmol/L Anion Gap 7.0 mmol/L Blood Urea Nitrogen 13 mg/dl Creatinine 0.87 mg/dl Est Creatinine Clear Calc Drug Dose 93.9 ml/min Estimated GFR () 95.1 Estimated GFR (Non- 82.1 BUN/Creatinine Ratio 15.3 Random Glucose 143 mg/dl Calcium Level 8.6 mg/dl Bedside Glucose 140 mg/dl
--- NOTE | 2017-07-12 18:59 | Progress Note ---
Internal Med Progress Note Date of Service: Jul 12, 2017. Provider Documentation: SUBJECTIVE: resting comfortably no sob or chest pain no abdominal pain want to go home OBJECTIVE: Vital Signs-as noted below Exam: General-alert and oriented. Not in distress ENT-normal hearing Neck-no neck masses Lungs-cta b/l no wheezing no crackles Heart-s1 and s2 heard regular rhythm, no murmurs Abdomen-soft bowel sounds present non tender no distension Extremities no erythema Neuro-alert and oriented moves extremities Lab data as noted below. 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 Lower central chest pain/epigastric pain: R/o ACS; risk factors include HTN, DM II, obesity, HLD serial CE and ekg unremarkable Stress echo from 2014 without inducible ischemia. EF of 55-59% echo done- no wall motion abnormality on aspirin, statin Consulted cardiology and appreciate inputs stable now f/u as out patinet Epigastric pain gall stones on ultrasounds hida scan unremarkable on Prevacid consulted GI for further recommendations. GI recommends out patient egd added Zantac DM II: oral agents on hold SSI while in-patient will monitor HTN: Stable on lasix, spironolactone, metoprolol A fib: H/o tachy-leanne syndrome with PM placed in 2013 -Rate controlled on Coumadin. 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 HLD: on statin ldl44 hdl 44 HERMES: Recently diagnosed Ordered CPAP for qHS use GERD: home meds discharged home Vital Signs: Date Time Temp Pulse Resp B/P (MAP) Pulse Ox O2 Delivery O2 Flow Rate FiO2 07/12/17 10:42 36.5 62 16 96 Room Air 07/12/17 08:30 62 111/72 (85) 07/12/17 08:00 Room Air 07/12/17 07:23 36.5 60 16 109/74 (86) 96 Room Air 07/12/17 07:09 59 17 113/75 (88) 94 Room Air 07/12/17 04:17 36.6 61 18 130/82 (98) 96 Room Air 07/12/17 04:00 97 Room Air 07/12/17 00:00 97 Room Air 07/11/17 22:41 36.4 60 16 119/79 (92) 97 Room Air 07/11/17 20:00 97 Room Air 07/11/17 19:23 36.3 61 18 123/62 (82) 94 Room Air Lab Results: Results Past 24 Hours Test 07/11/17 20:42 07/12/17 06:21 07/12/17 07:01 Range/Units Bedside Glucose 138 140 70-99 mg/dl Sodium Level 138 136-145 mmol/L Potassium Level 3.8 3.5-5.1 mmol/L Chloride Level 104 98-107 mmol/L Carbon Dioxide Level 27 21-32 mmol/L Anion Gap 7.0 3-11 mmol/L Blood Urea Nitrogen 13 7-18 mg/dl Creatinine 0.87 0.60-1.40 mg/dl Est Creatinine Clear Calc Drug Dose 93.9 ml/min Estimated GFR () 95.1 Estimated GFR (Non- 82.1 BUN/Creatinine Ratio 15.3 10-20 Random Glucose 143 70-99 mg/dl Calcium Level 8.6 8.5-10.1 mg/dl
--- NOTE | 2017-07-12 19:04 | Discharge Summary ---
Discharge Summary Date of Service Jul 12, 2017. 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 Cardiomegaly without acute cardiopulmonary process. 2. Moderate stool burden with nonobstructive bowel gas pattern. 3. No urolithiasis identified. GALL BLADDER US: 1. Cholelithiasis which almost completely fills the gallbladder. No definite gallbladder wall thickening. 2. Borderline hepatomegaly demonstrating fatty change. 3. The pancreas was obscured by overlying bowel gas. HIDA SCAN: No evidence for cystic duct obstruction. Normal study ECHO: The study is technically difficult and limited due to patient characteristics and poor acoustic windows despite the use of ultrasound contrast. * Abnormal septal wall motion is present consistent with right ventricular pacemaker abnormality. * There is invertentricular septal flattening noted on limited images, suggestive of RV pressure and volume overload. * The LV wall motion is otherwise grossly normal on limited visualization. * Left ventricular systolic function is low normal. * Ejection Fraction = 50-55%. * The right ventricle is grossly normal size. * The right ventricular systolic function is mildly reduced. * Tricuspid regurgitation was not detected by Doppler and therefore the right ventricular and pulmonary artery systolic pressures cannot be estmated. * Mild aortic regurgitation. * There is mild mitral regurgitation. Consultations: CARDIOLOGY GI Medication Reconciliation New Medications: Furosemide (Furosemide) 20 Mg Tab 20 MG PO QAM, #30 TAB 1 Refill Ranitidine HCl (Ranitidine HCl) 150 Mg Tab 150 MG PO BID, #60 TAB 1 Refill Continued Medications: Aspirin (Aspirin 81) 81 Mg Tab 81 MG PO DAILY Dutasteride (Avodart) 0.5 Mg Cap 0.5 MG PO DAILY, CAP Glipizide (Glipizide Er) 10 Mg Tab 2 TAB PO DAILY 1/2 tablet every other day, alternating 1 tablet every other day Lansoprazole (Prevacid Solutab) 30 Mg Leidy 30 MG PO DAILY, TAB Metformin Hcl (Glucophage) 1,000 Mg Tab 1000 MG PO DAILY, TAB Metoprolol Tartrate (Lopressor) (Lopressor) 25 Mg Tab 25 MG PO BID, TAB Rosuvastatin Calcium (Crestor) 5 Mg Tab 10 MG PO MON&THUR, TAB Saxagliptin-Metformin Hcl (Kombiglyze Xr) 1 Tab Tab 1 TAB PO DAILY Spironolactone (Aldactone) 25 Mg Tab 25 MG PO UD, TAB TAKE ONE TABLET BY MOUTH TWO TO THREE DAYS A WEEK WITH LASIX Tamsulosin Hcl (Flomax) 0.4 Mg Cap 0.4 MG PO DAILY, CAP Warfarin Sod (Jantoven) 5 Mg Tab 5 MG PO MON&FRI, TAB Warfarin Sod (Coumadin) 7.5 Mg Tab 1 TAB PO DIRECTED Discontinued Medications: Furosemide (Lasix) 20 Mg Tab 20 MG PO 3XWK, TAB Admission Information HPI (per Admitting provider): This is a 81yo M with a 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 Patient is unsure about the onset of pain. Describes pain beneath lower sternum and in mid- epigastrium that is sharp, intermittent, non-radiating, and worse with exertion. Patient is a poor historian but family and daughter mentioned that patient was doubled over in pain this morning. Endorses SOB, but states that he has had this for years and is SOB after walking 20 feet. Per family, patient is becoming SOB after climbing a few steps in his home, which is different than baseline. Endorses orthopnea but states that it has improved since starting to use a CPAP machine at night earlier this month. Denies any change to edema in LE. Denies ever being diagnosed with CHF. Daughter states that patient's abdomen looks larger than usual but patient denies weight gain. Has a large abdominal wall hernia that has been present for years. Patient is unsure if it contributes to SOB. Denies any fever, chills, nausea, acid-reflux, vomiting, diarrhea or changes to stool. Patient follows with Dr. Leyva in clinic for A fib and HTN. Was recently seen and patient was restarted on Lasix 3x/wk after running out. PM was interrogated on 01/15 and is functioning normally. Stress echo was performed in 2014 and was negative for inducible ischemia. LV EF of 55-59%. Physical Exam (per Admitting): General Appearance: WD/WN, no apparent distress, + obese Head: normocephalic, atraumatic Eyes: normal inspection, PERRL, sclerae normal ENT: normal ENT inspection Neck: supple, no adenopathy Respiratory/Chest: chest non-tender, lungs clear, normal breath sounds, no respiratory distress, no accessory muscle use Cardiovascular: regular rate, rhythm, no murmur, normal peripheral pulses Abdomen/GI: normal bowel sounds, non tender, soft (Protuberant abdomen with large abdominal wall hernia in the midline. Slight TTP in mid-epigastrium. No tenderness elsewhere. 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 Lower central chest pain/epigastric pain: R/o ACS; risk factors include HTN, DM II, obesity, HLD serial CE and ekg unremarkable Stress echo from 2014 without inducible ischemia. EF of 55-59% echo done- no wall motion abnormality on aspirin, statin Consulted cardiology and appreciate inputs stable now f/u as out patinet Epigastric pain gall stones on ultrasounds hida scan unremarkable on Prevacid consulted GI for further recommendations. GI recommends out patient egd added Zantac DM II: oral agents on hold SSI while in-patient will monitor HTN: Stable on lasix, spironolactone, metoprolol A fib: H/o tachy-leanne syndrome with PM placed in 2013 -Rate controlled on Coumadin. 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 HLD: on statin ldl44 hdl 44 HERMES: Recently diagnosed Ordered CPAP for qHS use GERD: home meds discharged home Total time spent on discharge = 35MINUTES This includes examination of the patient, discharge planning, medication reconciliation, and communication with other providers. Discharge Instructions Please take this sheet to every appointment for the next month Discharge Instructions Date of Service Jul 12, 2017. 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 Instructions / Follow-Up Instructions / Follow-Up FOLLOWUP WITH FAMILY DOCTOR IN ONE WEEK. FOLLOWUP WITH CARDIOLOGY IN 1-2 WEEKS. FOLLOWUP WITH COUMADIN CLINIC FOR COUMADIN DOSING. FOLLOWUP WITH GI SCHEDULED FOR EGD. LAB: BMP IN ONE WEEK PER FAMILY DOCTOR LASIX DOSE FREQUENCY INCREASED. Call your Primary Care doctor if any of the following symptoms or problems start or get worse: * Shortness of breath or difficulty breathing * Wake up at night short of breath * Chest pain * Cough * Swelling of your hands, feet, or legs * More fatigued or tired with your normal activity * Palpitations - sudden fast heart beats WEIGHT * Weigh yourself every morning after using the bathroom. * Use the same scale. * Wear the same amount of clothing. * Write your weight down on a chart. * Call your Primary Care doctor if you gain more than 2-3 pounds in 1-2 days. MEDICATIONS * Use this discharge instruction sheet for medication instructions. * Take your medications at the time your doctor ordered. * Do not skip a dose of your medicines. * If you miss a dose of medicine, take it as soon as possible, but DO NOT DOUBLE A DOSE. * Read your medicine information when you get home. * Know all of the side effects of your medicine. If in doubt, ask your pharmacist * Call your Primary Care doctor's office if you have any side effects. * Be sure all of your doctors know what medicine and herbs you take (including cold, flu, and herbal medicine). Take the following with you to your follow-up doctor appointments: * Weight Chart * Medication List * List of questions Do not drink excessive alcohol, beer or wine. Current Hospital Diet Patient's current hospital diet: Diabetes Type 2 Diet Discharge Diet Recommended Diet: AHA Diet (Heart Healthy), Diabetes Type 2 Diet Pending Studies Studies pending at discharge: no Laboratory Results Hemoglobin A1c Test 07/10/17 06:05 Range/Units Estimated Average Glucose 151 mg/dl Hemoglobin A1c 6.9 H 4.5-5.6 % Lipid Panel Test 07/10/17 06:05 Range/Units Triglycerides Level 92 0-150 mg/dl Cholesterol Level 106 0-200 mg/dl HDL Cholesterol 44 mg/dl Cholesterol/HDL Ratio 2.4 LDL Cholesterol, Calculated 44 mg/dl Medical Emergencies . Who to Call and When: Call 911 or go to the Emergency Room if: * If at any time you feel your situation is an emergency * You have tightness or pain in your chest that does not go away with rest or Nitroglycerin * You are very short of breath even with rest . Non-Emergent Contact Non-Emergency issues call your: Primary Care Provider . . "Provider Documentation" section prepared by Rc Varela. . VTE Core Measure Inpt VTE Proph given/why not?: Warfarin (Coumadin)
[2017-07-29] MEDS ORDERED: ZNTT/150 PO (08:10)
[2017-07-29] MEDS ORDERED: SAXA1TAB5 PO (08:10)
[2017-07-29] MEDS ORDERED: HYDR25TA4 PO (08:10)
[2017-07-29] MEDS ORDERED: NTRGSL/4 UT (08:11)
[2017-07-29] MEDS ORDERED: FURO-85 PO (08:24)
== END 2017-07-12 11:28 | disposition home or self-care (01) ==
LOC: C.EDB 12:58 → C.MED 16:57 → ENRESERV 17:12
PROVIDERS: ADMIT Family Medicine; ATTEND Internal Medicine
DX: R07.9 Chest pain, unspecified (principal); R10.13 Epigastric pain; I48.2 Chronic atrial fibrillation; K80.20 Calculus of gallbladder without cholecystitis without obstruction; I49.5 Sick sinus syndrome; I50.9 Heart failure, unspecified; I10 Essential (primary) hypertension; E66.2 Morbid (severe) obesity with alveolar hypoventilation; E11.9 Type 2 diabetes mellitus without complications; E78.5 Hyperlipidemia, unspecified; K21.9 Gastro-esophageal reflux disease without esophagitis; G47.33 Obstructive sleep apnea (adult) (pediatric); Z79.82 Long term (current) use of aspirin; Z79.01 Long term (current) use of anticoagulants; Z95.0 Presence of cardiac pacemaker; Z83.3 Family history of diabetes mellitus

== ENCOUNTER → 2017-08-05 | Day surgery (SDC) | payer OTHER, BC ==
[2017-07-29 08:17] VITALS: Ht 177.8 cm; Wt 134.1 kg
[~2017-08-05] VITALS: Ht 177.8 cm; Wt 134.1 kg
[~2017-08-05] MED LIST changes: -CMD25 PO; +CMD75 PO; -DICL-201 PO; +FENTANYL CITRATE INJ 50 MCG/1 ML 2 ML VIAL ONE; +FURO-85 PO; -GLC500 PO; -HYDR-3419 PO; +HYDR25TA4 PO; +KETAMINE HCL INJ 50 MG/ML 10 ML VIAL ONE; +LIDOCAINE HCL 2% 2 ML VIAL (20MG/ML) ONE; -LISI-461 PO; -LPR25 PO; +METF1000 PO; +METO25TA56 PO; +MIDAZOLAM HCL 1 MG/ML 2ML VIAL ONE; +NTRGSL/4 UT; +PROPOFOL IV EMULSION 10 MG/ML 20 ML VIAL IV ONE; +ROSU5TAB PO; -SAXA1TAB PO; +SAXA1TAB5 PO; +SODIUM CHLORIDE 0.9% 500ML 500 ML IV ONE; +SODIUM CHLORIDE 0.9% INJ 10 ML VIAL ONE; +SPIR25TA89 PO; +TAMS0.4C38 PO; +WARF5TAB7 PO; +ZNTT/150 PO
[2017-08-05 08:50] VITALS: TEMP 36.1
--- NOTE | 2017-08-05 09:14 | Endo History and Physical ---
History & Physical Date of Service: Aug 05, 2017. Chief Complaint: RUQ pain Referring Physician: Dr. Jordon Cortez History of Present Illness upper abd pain - improved since PPI Past Medical History Atrial Fibrillation, Diabetes, Eating Disorders, Arthritis, Male Genitourinary Prob., High Cholesterol, Hypertension Past Surgical History Hx Cardiac Surgery: Yes (HEART CATH, NO STENTS) Hx Internal Defibrillator: No Hx Pacemaker: Yes (03-20-2014) Hx Abdominal Surgery: No Hx of Implantable Prosthesis: No Hx Post-Op Nausea and Vomiting: No Hx Cancer Surgery: Yes (SKIN CANCER REMOVAL FROM CHEEK) Hx Thoracic Surgery: No Hx Orthopedic: No Hx Urinary Tract Surgery: No Family History None Social History Smoking Status: Never Smoker Hx Substance Use: No Hx Alcohol Use: No Allergies Coded Allergies: No Known Allergies (Verified , 08/05/17) Current Medications Reported Home Medications Medications Dose Route/Sig Max Daily Dose Days Date Category Dose Instructions Lasix (Furosemide) 20 Mg Tab 20 Mg PO QAM 07/29/17 Reported Nitrostat (Nitroglycerin) 0.4 Mg Tab 0.4 Mg UT UD PRN 07/29/17 Reported Zantac (Ranitidine HCl) 150 Mg Tab 150 Mg PO BID 07/29/17 Reported Kombiglyze Xr (Saxagliptin-Metformin HCl) 1 Tab Tab 1 Tab PO QPM 07/29/17 Reported 5MG/1000MG Hctz (Hydrochlorothiazide) 25 Mg Tab 25 Mg PO 2XWK 07/29/17 Reported Coumadin (Warfarin Sod) 7.5 Mg Tab 1 Tab PO 5XWK 07/09/17 Reported SUN,TUES,WED,THURS,SAT Aldactone (Spironolactone) 25 Mg Tab 25 Mg PO 2XWK 07/09/17 Reported Flomax (Tamsulosin Hcl) 0.4 Mg Cap 0.4 Mg PO HS 07/09/17 Reported Crestor (Rosuvastatin Calcium) 5 Mg Tab 10 Mg PO 2XWK 07/09/17 Reported Jantoven (Warfarin Sodium) 5 Mg Tab 5 Mg PO 2XWK 07/09/17 Reported MON, FRI Lopressor (Metoprolol Tartrate) 25 Mg Tab 25 Mg PO BID 07/09/17 Reported Glucophage (Metformin Hcl) 1,000 Mg Tab 1,000 Mg PO QAM 07/09/17 Reported Aspirin 81 (Aspirin) 81 Mg Tab 81 Mg PO QAM 03/20/14 Reported Prevacid Solutab (Lansoprazole) 30 Mg Leidy 30 Mg PO HS 03/20/14 Reported Avodart (Dutasteride) 0.5 Mg Cap 0.5 Mg PO QAM 03/20/14 Reported Glipizide Er (Glipizide) 10 Mg Tab 1 Tab PO BID 03/20/14 Reported Vital Signs Weight (Kilograms): 134.09 Height (Feet): 5 Height (Inches): 10 Date Time Temp Pulse Resp B/P (MAP) Pulse Ox O2 Delivery O2 Flow Rate FiO2 08/05/17 08:50 36.1 63 20 157/85 (109) 97 Room Air Physical Exam General Appearance: WD/WN, no apparent distress Assessment and Plan EGD today
--- NOTE | 2017-08-05 09:34 | GI REPORT ---
Procedure Date: 08/05/2017 9:09 AM Procedure: Upper GI endoscopy Indications: Epigastric abdominal pain, Abdominal pain in the right upper quadrant Medicines: Propofol per Anesthesia Complications: No immediate complications. Estimated blood loss: Minimal. Estimated Blood Loss: Estimated blood loss was minimal. Procedure: Pre-Anesthesia Assessment: - Prior to the procedure, a History and Physical was performed, and patient medications, allergies and sensitivities were reviewed. The patient's tolerance of previous anesthesia was reviewed. - The risks and benefits of the procedure and the sedation options and risks were discussed with the patient. All questions were answered and informed consent was obtained. - Patient identification and proposed procedure were verified prior to the procedure by the physician and the nurse. The procedure was verified in the pre-procedure area in the procedure room. - Mental Status Examination: alert and oriented. Airway Examination: normal oropharyngeal airway and neck mobility. Respiratory Examination: clear to auscultation. CV Examination: normal. Abdominal Examination: bowel sounds present, abdomen soft and non-tender, no masses or organomegaly noted. - ASA Grade Assessment: III - A patient with severe systemic disease. After obtaining informed consent, the endoscope was passed under direct vision. Throughout the procedure, the patient's blood pressure, pulse, and oxygen saturations were monitored continuously. The On-site loaner was introduced through the mouth, and advanced to the second part of duodenum. The upper GI endoscopy was accomplished without difficulty. The patient tolerated the procedure well. Findings: The esophagus was normal. The entire examined stomach was normal. Biopsies were taken with a cold forceps for Helicobacter pylori testing. Verification of patient identification for the specimen was done by the physician and nurse using the patient's name and date. Estimated blood loss was minimal. The examined duodenum was normal. Impression: - Normal esophagus. - Normal stomach. Biopsied. - Normal examined duodenum. Recommendation: - Await pathology results. - Follow an antireflux regimen. - Continue present medications. - Return to primary care physician as previously scheduled. - Discharge patient to home. Rupali Cook D.O. Rupali Cook, 08/05/2017 9:34:00 AM This report has been signed electronically. Note Initiated On: 08/05/2017 9:09 AM I attest to the content of the Intraoperative Record and orders documented therein, exceptions below
--- NOTE | 2017-08-05 09:36 | Discharge Instructions ---
Endoscopy Patient Instructions Date / Procedure(s) Performed Aug 05, 2017. EGD Allergy Information Coded Allergies: No Known Allergies (Verified , 08/05/17) Discharge Date / Findings Aug 05, 2017. normal EGD Medication Instructions Stopped Medication(s): Last dose ASA yesterday,Glucophage Wednesday,Coumadin Wednesday Restart Stopped Medication(s): OK to resume home medications as above Provider Instructions Activity Restrictions - No exercising or heavy lifting for 24 hours. - Do not drink alcohol the day of the procedure. - Do not drive a car or operate machinery until the day after the procedure. - Do not make any important decisions or sign important papers in 24 hours after the procedure. Following Day: - Return to full activity which may include returning to work/school. Diet Start your diet with liquids and light foods (jello, soup, juice, toast). Then eat your usual diet if not nauseated. Treatment For Common After Affects For mild abdominal pain, bloating, or excessive gas: - Rest - Eat lightly - Lie on right side Follow-Up Information Follow-up with Dr. Jordon Cortez as scheduled Anesthesia Information What You Should Know You have had a procedure that required some medicine to reduce anxiety and discomfort. This treatment is called moderate sedation. After receiving the treatment, you may be sleepy, but you will be able to breathe on your own. The effects of the treatment may last for several hours. Follow these instructions along with Activity/Diet recommendations noted above: * Do NOT do anything where dizziness or clumsiness would be dangerous. * Rest quietly at home today, then you can be up and about tomorrow. * Have a responsible person stay with you the rest of today. * You may have had an I.V. today. If so, you may take the dressing off later today. Recommendations Call your doctor if: * Trouble breathing * Continuous vomiting for more than 24 hours * Temperature above 101 degrees * Severe abdominal pain or bloating * Pain not relieved by pain medicine ordered * There is increased drainage or redness from any incision * A large amount of rectal bleeding greater than 2-3 tablespoons. (If you had a polyp/s removed or have hemorrhoids, a small amount of blood - from the rectum is to be expected.) * You have any unanswered questions or concerns. IN THE EVENT OF A SERIOUS EMERGENCY, GO TO THE NEAREST EMERGENCY ROOM Your discharge instructions were prepared by provider Rupali Cook. Patient Instructions Signature Page Gerald Long Patient (or Guardian) Signature/Date: I have read and understand the instructions given to me by my caregivers. Caregiver/RN/Doctor Signature/Date: The above-named patient and/or guardian has received patient instructions on this date. + Original Patient Signature Page (only) stays with chart. Please make copy for patient.
--- NOTE | 2017-08-05 09:42 | Anesthesiology Progress Note ---
Anesthesia Post Op Note Date & Time Aug 05, 2017 at 09:42 Vital Signs Pain Intensity: 0 Vital Signs Past 12 Hours Date Time Temp Pulse Resp B/P (MAP) Pulse Ox O2 Delivery O2 Flow Rate FiO2 08/05/17 09:33 65 20 126/69 (88) 97 Room Air 08/05/17 08:50 36.1 63 20 157/85 (109) 97 Room Air Notes Mental Status: alert / awake / arousable, participated in evaluation Pt Amnestic to Procedure: Yes Nausea / Vomiting: adequately controlled Pain: adequately controlled Airway Patency, RR, SpO2: stable & adequate BP & HR: stable & adequate Hydration State: stable & adequate Anesthetic Complications: no major complications apparent
[2017-08-05 10:05] VITALS: BP 127/78; PULSE 60; O2SAT 96
== END | disposition home or self-care (01) ==
LOC: C.GI 08:20
PROVIDERS: ATTEND Internal Medicine
DX: R10.11 Right upper quadrant pain (principal); R10.13 Epigastric pain; K29.50 Unspecified chronic gastritis without bleeding; I10 Essential (primary) hypertension; G47.33 Obstructive sleep apnea (adult) (pediatric); E11.9 Type 2 diabetes mellitus without complications; N40.0 Benign prostatic hyperplasia without lower urinary tract symptoms; E78.00 Pure hypercholesterolemia, unspecified; Z85.828 Personal history of other malignant neoplasm of skin